=== PATIENT | female | born 1990 | race Caucasian/White ===

== ENCOUNTER 2024-12-29 12:17 | Outpatient (OUT) | payer OTHER, SELFPAY ==
--- OUTSIDE RECORDS SUMMARY | 2024-12-29 11:30 | XMS_ITS | Encounter Summary ---
Author Organization [facility] Address [address] [place] [address] Care Team Providers Care Medical Doctor Md Name Role Phone Pual Hargrove MD Primary Care Provider [phone] Paul Hargrove MD Unavailable [phone] Encounter Details DateTypeDepartmentCare Team (Latest Contact Info)Ocpnnyntjhw25/04/2025 11:30 AM ESTOffice Visit [facility] [place] [address] Family Medicine [address] [facility] [address] [place] [address] Paul Hargrove MD [address] [facility] [address] [place] [address] (Fax) Cervicalgia (Primary Dx); Encounter for wellness examination in adult; Advance directive in chart; Lumbosacral radiculopathy at S1 Social History Tobacco UseTypesPacks/DayYears UsedDateSmoking Tobacco: NeverSmokeless Tobacco: NeverAlcohol UseStandard Drinks/WeekCommentsYes1 (1 standard drink = 0.6 oz pure alcohol)1-2 drinks less than monthly in the past year, Caffeine intake: 1-2 cups per dayPHQ-2AnswerDate RecordedPatient Health Questionnaire-2 Gfzac41302/29/2024 CommentsNoSex and Gender InformationValueDate RecordedSex Assigned at BirthNot on fileLegal SchVasibi16/15/2023 6:46 PM EDTGender IdentityNot on file Sexual OrientationNot on fileOccupationIndustryJob Start DateJob End DateWorks full-time, PTANot on fileNot on fileNot on filedocumented as of this encounter Last Filed Vital Signs Vital SignReadingTime TakenCommentsBlood Rbhdoxpt363/6811/05/2024 11:34 AM EST Tyfoc543412/29/2024 11:34 AM ESTTemperature--Respiratory Rate--Oxygen Saturation 97%12/29/2024 11:34 AM ESTInhaled Oxygen Concentration--Weight--Height--Body Mass Index--documented in this encounter Functional Status * Over the past 2 weeks, how often have you been bothered by any of the following problems?QuestionAnswerDate of AssessmentAuthorLittle interest or pleasure in doing thingsNot at all12/29/2024 11:36 AM Sylvia, May, EMERALD Feeling down, depressed, or hopelessNot at all12/29/2024 11:36 AM Sylvia May [facility]ITALatient Health Questionnaire-2 Sstjb87302/29/2024 11:36 AM Sylvia Rhonda, EMERALD documented as of this encounter Plan of Treatment DateTypeDepartmentCare Team (Latest Contact Info)Xefxayvpfmf63/09/2025 9:45 AM ESTOffice Visit [facility] [place] [facility] [address] [place] [address] Masha Wild DO [address] [place] [address] NameTypePriorityAssociated DiagnosesOrder ScheduleXR cervical spine 2 or 3 views ImagingRoutine Cervicalgia Expected: 12/29/2024, Expires: 12/29/2025XR LUMBAR SPINE AP/LAT/FLEX/EXT/OBLIQUESImagingRoutine Lumbosacral radiculopathy at S1 Expected: 12/29/2024, Expires: 12/29/2025documented as of this encounter Visit Diagnoses Diagnosis Cervicalgia- Primary Encounter for wellness examination in adult Advance directive in chart Lumbosacral radiculopathy at S1 documented in this encounter Care Teams Team MemberRelationshipSpecialtyStart DateEnd Date Paul Hargrove MD [address] [address] PCP - GeneralFamily Medicine07/03/22 Paul Hargrove MD [address] [address] PCP - Medical [employer]02/25/2311documented as of this encounter
--- OUTSIDE RECORDS SUMMARY | 2024-12-29 12:25 | XMS_ITS | Clinical Summary ---
Author Organization [facility] Address [address] [place] [address] Phone Care Team Providers Care Book Trimmer Name Role Phone Paul Hargrove MD Primary Care Provider Allergies No known active allergies Medications MedicationSigDispense QuantityRefillsLast FilledStart DateEnd DateStatus dilTIAZem CD (Cardizem CD) 120 mg 24 hr capsule Indications:Paroxysmal SVT (supraventricular tachycardia)Take 1 capsule (120 mg) by mouth once daily as needed (tachycardia). 15 capsule 5Active Active Problems ProblemNoted DateDiagnosed DateNever smoked gonukts75/21/2025BMI 24.0-24.9, adult4Paroxysmal SVT (supraventricular tachycardia)02/20/2023 Immunizations ImmunizationAdministration DatesNext PccSHI0409/17/1997DTaP, Aiuhvbijiyz24/27/1995 Flu vaccine (IIV4), preservative free *Check age/dose*11/20/2021HPV, Unspecified 11/16/2010Hepatitis B vaccine, 19 yrs and under (RECOMBIVAX, ENGERIX)12/29/1999 HiB, jppjkuwdhru88/27/1995MMR vaccine, subcutaneous (MMR II)09/17/1997 Meningococcal ACWY-D (Menactra) 4-valent conjugate gqblmmp3511/16/2010Moderna SARS-CoV-2 Aiadwqorcxp25/25/2021,02/18/2020OPV03/24/1993 Family History Medical HistoryRelationNameCommentsDiabetesFatherHypertensionFatherRelationName StatusCommentsFather Social History Tobacco UseTypesPacks/DayYears UsedDateSmoking Tobacco: NeverSmokeless Tobacco: NeverAlcohol UseStandard Drinks/WeekCommentsYes0 (1 standard drink = 0.6 oz pure alcohol)socialCommentsUnknownSex and Gender InformationValueDate RecordedSex Assigned at BirthNot on fileLegal WsbAhpoeg42/26/2022 2:07 AM EST Gender IdentityNot on fileSexual OrientationNot on file Last Filed Vital Signs Vital SignReadingTime TakenCommentsBlood Eecoenkq865/8001 1:14 PM EST Qgeqs364003/17/2024 1:14 PM ESTTemperature--Respiratory Rate--Oxygen Saturation-- Inhaled Oxygen Concentration--Rhouxn66.3 kg (146 lb 3.2 oz)03/17/2024 1:14 PM YUIMfhqdv569.6 cm (5' 6 )03/17/2024 1:14 PM ESTBody Mass Index23.6003/17/2024 1:14 PM EST Plan of Treatment DateTypeDepartmentCare Team (Latest Contact Info)Ffgqffkjfjp84/27/2026 1:00 PM ESTOffice Visit [facility] [address] [address] Keena Coreas MD 703 [facility], [address] [place] [address] Health MaintenanceDue DateLast DoneCommentsHIV Qsztlckmo47/16/1993DTaP/Tdap/Td Vaccines (6 - Tdap), 03/23/1994, 06/05/1993, Additional history existsDiabetes Wxbyqthaf51/16/2011Hepatitis C Qyaespjmb83/16/2011HPV Vaccines (3 - 3-dose series), 09/12/2010, 12/12/2009Cervical Cancer Oroscycux96/16/2014HPV/Clfuzm4909/09/2013Pap Smear2013Influenza Vaccine (#1), 11/19/2022, 11/20/2021, Additional history existsCOVID-19 Vaccine ( season)501/, 02/18/2020 Yearly Adult Rdrybrrf79/13/405434/01/2024, 12/24/2023, 12/18/2022, Additional history existsLipid Panel805/Zoster Vaccines (1 of 2)2042 HIB AuvlhvrcRqbzpxspr06/27/1995, 06/05/1993, 03/24/1993, Additional history existsIPV FoqnyzvfHprhyazse15/24/1998, 06/05/1993, 03/24/1993, Additional history existsMMR WsbhmbnuHhvdfxwho41/24/1998, 03/23/1994Hepatitis B Vaccines Bkgfxiury05/03/2000, 07/14/1999, 06/14/1999Meningococcal VaccineCompleted 11/16/2010Hepatitis A VaccinesAged OutNo longer eligible based on patient's age to complete this topicPneumococcal Vaccine: Pediatrics and At-Risk Adult PatientsAged OutNo longer eligible based on patient's age to complete this topic Rotavirus VaccinesAged OutNo longer eligible based on patient's age to complete this topic Insurance * Guarantor: Hortencia oWng TypeRelation to PatientDate of BirthPhone Billing AddressPersonal/ThgvlhVthl02/16/[address] [place] [address] Care Teams Team MemberRelationshipSpecialtyStart DateEnd Date Paul Hargrove MD [address] [place] [address] PCP - General02/25/99
--- OUTSIDE RECORDS SUMMARY | 2024-12-29 12:25 | XMS_ITS | Encounter Summary ---
Author Organization [facility] Address [address] [facility] [place] [address] Care Team Providers Care Line Staker Name Role Phone Paul Hargrove MD Primary Care Provider [phone] Paul Hargrove MD Unavailable [phone] Encounter Details DateTypeDepartmentCare Team (Latest Contact Info)Zubyvsbanqq21/28/2025Orders Only [facility] [address] Medicine [address] [facility] 100 [place] [address] Paul Hargrove MD [address] [facility] [address] [place] [address] Social History Tobacco UseTypesPacks/DayYears UsedDateSmoking Tobacco: NeverSmokeless Tobacco: NeverAlcohol UseStandard Drinks/WeekCommentsYes1 (1 standard drink = 0.6 oz pure alcohol)1-2 drinks less than monthly in the past year, Caffeine intake: 1-2 cups per dayPHQ-2AnswerDate RecordedPatient Health Questionnaire-2 Tjeyi487 CommentsNoSex and Gender InformationValueDate RecordedSex Assigned at BirthNot on fileLegal CysMwfmkd56/15/2023 6:46 PM EDTGender IdentityNot on file Sexual OrientationNot on fileOccupationIndustryJob Start DateJob End DateWorks full-time, PTANot on fileNot on fileNot on filedocumented as of this encounter Plan of Treatment DateTypeDepartmentCare Team (Latest Contact Info)Eelqwaqpacw54/09/2025 9:45 AM ESTOffice Visit [facility] [address] [facility] [address] [place] [address] Masha Wild, DO [address] [place] [address] documented as of this encounter Procedures Procedure NamePriorityDate/TimeAssociated DiagnosisCommentsCBC (INCLUDES DIFF/PLT)Mmxvxll0209/10/2024 11:59 AM EDTLIPID ABQCELjarcnk45/17/2025 11:59 AM EDT COMPREHENSIVE METABOLIC PZBNRBaymndn61/17/2025 11:59 AM EDTdocumented in this encounter Results * CBC and differential (09/10/2024 11:59 AM EDT)Specimen (Source)Anatomical Location / LateralityCollection Method / VolumeCollection TimeReceived Time BloodVenous blood specimen / Unknown Narrative Authorizing ProviderResult TypeResult StatusPaul DUNCAN BLOOD ORDERABLESFinal Result * Comprehensive metabolic panel (09/10/2024 11:59 AM EDT)Specimen (Source) Anatomical Location / LateralityCollection Method / VolumeCollection Time Received TimeBloodVenous blood specimen / Unknown Narrative Authorizing ProviderResult TypeResult StatusPaul DUNCAN BLOOD ORDERABLESFinal Result * Lipid panel (09/10/2024 11:59 AM EDT)Specimen (Source)Anatomical Location / LateralityCollection Method / VolumeCollection TimeReceived TimeBloodVenous blood specimen / Unknown Narrative Authorizing ProviderResult TypeResult StatusPaul DUNCAN BLOOD ORDERABLESFinal Result documented in this encounter Visit Diagnoses Not on filedocumented in this encounter Care Teams Team MemberRelationshipSpecialtyStart DateEnd Date Paul Hargrove MD [address] [place] [address] (Fax) PCP - GeneralFamily Medicine07/03/22 Paul Hargrove MD [address] [place] [address] (Fax) PCP - Medical [place] [employer]/02/2311documented as of this encounter
--- OUTSIDE RECORDS SUMMARY | 2024-12-29 12:25 | XMS_ITS | Encounter Summary ---
Author Organization [facility] Address [address] [place] [address] Care Team Providers Care Account Services Specialist Name Role Phone Paul Hargrove MD Primary Care Provider [phone] Paul Hargrove MD Unavailable [phone] Encounter Details DateTypeDepartmentCare Team (Latest Contact Info)Ekjbsdipcfj87/04/2025Travel Social History Tobacco UseTypesPacks/DayYears UsedDateSmoking Tobacco: NeverSmokeless Tobacco: NeverAlcohol UseStandard Drinks/WeekCommentsYes1 (1 standard drink = 0.6 oz pure alcohol)1-2 drinks less than monthly in the past year, Caffeine intake: 1-2 cups per dayPHQ-2AnswerDate RecordedPatient Health Questionnaire-2 Bkavp21902/29/2024 CommentsNoSex and Gender InformationValueDate RecordedSex Assigned at BirthNot on fileLegal JbrSsgvks83/15/2023 6:46 PM EDTGender IdentityNot on file Sexual OrientationNot on fileOccupationIndustryJob Start DateJob End DateWorks full-time, PTANot on fileNot on fileNot on filedocumented as of this encounter Functional Status * Over the past 2 weeks, how often have you been bothered by any of the following problems?QuestionAnswerDate of AssessmentAuthorLittle interest or pleasure in doing thingsNot at all12/29/2024 11:36 AM Rhonda Ward MA Feeling down, depressed, or hopelessNot at all12/29/2024 11:36 AM Rhonda Ward, MAPatient Health Questionnaire-2 Qrrnw67102/29/2024 11:36 AM Rhonda Ward MA documented as of this encounter Plan of Treatment DateTypeDepartmentCare Team (Latest Contact Info)Qpzxfogqjlo74/09/2025 9:45 AM ESTOffice Visit [facility] [place] [facility] [address] [place] [phone] Masha Wild DO [address] [place] [address] documented as of this encounter Visit Diagnoses Not on filedocumented in this encounter Care Teams Team MemberRelationshipSpecialtyStart DateEnd Date Paul Hargrove MD [address] [place] [address] PCP - GeneralFamily Medicine07/03/22 Paul Hargrove MD [address] [place] [address] PCP - Medical [place] [employer]02/25/2311documented as of this encounter
--- OUTSIDE RECORDS SUMMARY | 2024-12-29 12:25 | XMS_ITS | Clinical Summary ---
Author Organization [facility] Address [address] [place] [address] Care Team Providers Care Medical Office Manager Name Role Phone Paul Hargrove MD Primary Care Provider [phone] Paul Hargrove MD Unavailable [phone] Allergies No known active allergies Medications MedicationSigDispense QuantityRefillsLast FilledStart DateEnd DateStatus Levonorgestrel (MIRENA, 52 MG, IU) MirenaActive cetirizine (ZyrTEC) 10 MG tablet Take 10 mg by mouth Daily as needed for allergies.Active PreviDent 5000 Sensitive 1.1-5 % dental gel Apply to teeth Daily5Active Active Problems ProblemNoted DateDiagnosed DateBilateral occipital gzudlchbp15/23/2023hronic fatigue yxmvqfwi78/23/2023AD (generalized anxiety disorder)12/17/2022Iron deficiency anemia secondary to inadequate dietary iron keqchp7612/17/2022 Pphoggbokzao65/23/2023 Resolved Problems ProblemNoted DateDiagnosed DateResolved DateAbnormal immunological findings in specimens from other organs, systems and itmkuii55ecurrent major depressive disorder, in partial vzkvgkvol67/ Encounters DateTypeDepartmentCare KncdDfpyjpvsdoq63/04/2025 11:30 AM ESTOffice Visit [facility] [address] Paul Hargrove MD Cervicalgia (Primary Dx); Encounter for wellness examination in adult; Advance directive in chart; Lumbosacral radiculopathy at S115Bamboo flowsheet [facility] [place] [address] [place] [address] [address] [facility] 100 [place] [address] Paul Hargrove MD 12/29/20249492Rduruc81/28/2025Orders Only [facility] [place] 100 [facility] [address] [facility] [place] [address] Paul Hargrove MD 11/24/2024Telephone [facility] [address] [place] [address] [place] [address] Kj Rhonda, MA Care Coordinationfrom Last 3 Months Immunizations ImmunizationAdministration DatesNext JudZCT0706/05/1993,03/24/1993,01/06/1993DTaP, Eizilxsepez05/24/1998,03/23/1994HPV, Gmtoyntsywe58/22/2011,09/12/2010,12/12/2009 Hep B, Adolescent or Tyramarqy73/03/2000,07/14/1999,06/14/1999HiB, unspecified 03/23/1994,06/05/1993,03/24/1993,01/06/1993Influenza, Injectable, MDCK, preservative free11/27/2017Influenza, injectable, xkzvhhdkeljo96/02/2017 Influenza, injectable, quadrivalent, preservative free11/19/2022,11/20/2021 Influenza, seasonal, mnoydazztc48/01/2020Influenza, seasonal, injectable, preservative free12/02/2024,12/11/2023MMR09/17/1997,03/23/1994Meningococcal NCN3Y5211/16/2010OPV09/17/1997,06/05/1993,03/24/1993,01/06/1993 Family History Medical HistoryRelationNameCommentsNo Known ProblemsBrotherDiabetesFather HyperlipidemiaFatherObesityFatherBreast cancerMotherHeart diseasePaternal GrandfatherStrokePaternal GrandfatherStrokePaternal GrandmotherNo Known Problems SisterRelationNameStatusCommentsBrother1 brotherFatherDeceasedMotherAlive Paternal GrandfatherPaternal GrandmotherDeceasedbreast cancerSister1 sister Social History Tobacco UseTypesPacks/DayYears UsedDateSmoking Tobacco: NeverSmokeless Tobacco: Never Tobacco Cessation:Counseling Given: No Alcohol UseStandard Drinks/WeekCommentsYes1 (1 standard drink = 0.6 oz pure alcohol)1-2 drinks less than monthly in the past year, Caffeine intake: 1-2 cups per dayPHQ-2AnswerDate RecordedPatient Health Questionnaire-2 Plxif73502/29/2024 CommentsNoSex and Gender InformationValueDate RecordedSex Assigned at BirthNot on fileLegal IovUuened60/15/2023 6:46 PM EDTGender IdentityNot on file Sexual OrientationNot on fileOccupationIndustryJob Start DateJob End DateWorks full-time, PTANot on fileNot on fileNot on file Last Filed Vital Signs Vital SignReadingTime TakenCommentsBlood Paygnmpw239/6812/29/2024 11:34 AM EST Ucatc786712/29/2024 11:34 AM ESTTemperature--Respiratory Rate--Oxygen Saturation 97%12/29/2024 11:34 AM ESTInhaled Oxygen Concentration--Onlcmh07.3 kg (144 lb) 01/07/2024 11:08 AM TCIEeftbh434.9 cm (5' 6.5 )12/24/2023 9:37 AM EDTBody Mass Index22.8912/24/2023 9:37 AM EDT Plan of Treatment DateTypeDepartmentCare Team (Latest Contact Info)Idzyrzciytr30/09/2025 9:45 AM ESTOffice Visit [facility] [address] [place] [address] Masha Wild DO [address] [place] [address] Health MaintenanceDue DateLast DoneCommentsPap Smear2013Cervical Cancer Jebrqvjea12/12/2029HPV/Pubkyo65OVID-19 VaccineDiscontinued 03/21/2020, 02/18/2020Influenza JxusewrNdmvknczx16/08/2025, 12/11/2023, 11/19/2022, Additional history existsPneumococcal Vaccine: Pediatrics (0 to 5 Years) and At-Risk Patients (6 to 64 Years)Aged OutNo longer eligible based on patient's age to complete this topic Insurance Advance Directives TypeDate RecordedPatient RepresentativeExplanationAdvance Directives and Living Will Living WillAdvance Directives and Living Will12/07/2020 2019-07-23 Power Of Type Proof Reproducer Care Teams Team MemberRelationshipSpecialtyStart DateEnd Date Paul Hargrove MD [address] [place] [address] PCP - GeneralFamily Medicine07/03/22 Paul Hargrove MD [address] [place] [address] PCP - Medical [place] [employer]02/25/2311
--- OUTSIDE RECORDS SUMMARY | 2024-12-29 12:25 | XMS_ITS | Encounter Summary ---
Author Organization [facility] Address [address] [place] [address] Care Team Providers Care Community Health Advisor Name Role Phone Paul Hargrove MD Primary Care Provider [phone] Paul Hargrove MD Unavailable [phone] Encounter Details DateTypeDepartmentCare Team (Latest Contact Info)Elumxaxoexj13/04/2025amboo flowsheet [facility] [address] Medicine [address] [facility] 100 [place] [address] Paul Hargrove MD 112 [facility] 100 [place] [address] Social History Tobacco UseTypesPacks/DayYears UsedDateSmoking Tobacco: NeverSmokeless Tobacco: NeverAlcohol UseStandard Drinks/WeekCommentsYes1 (1 standard drink = 0.6 oz pure alcohol)1-2 drinks less than monthly in the past year, Caffeine intake: 1-2 cups per dayPHQ-2AnswerDate RecordedPatient Health Questionnaire-2 Qqvec95002/29/2024 CommentsNoSex and Gender InformationValueDate RecordedSex Assigned at BirthNot on fileLegal IhsQhmuur78/15/2023 6:46 PM EDTGender IdentityNot on file Sexual OrientationNot on fileOccupationIndustryJob Start DateJob End DateWorks full-time, PTANot on fileNot on fileNot on filedocumented as of this encounter Plan of Treatment DateTypeDepartmentCare Team (Latest Contact Info)Bbcumhkmljr54/09/2025 9:45 AM ESTOffice Visit [facility] [place] [facility] [address] [facility] 210 [place] [address] Masha Wild, DO [address] [place] [address] documented as of this encounter Visit Diagnoses Not on filedocumented in this encounter Care Teams Team MemberRelationshipSpecialtyStart DateEnd Date Paul Hargrove MD [address] [place] [address] PCP - GeneralFamily Medicine07/03/22 Paul Hargrove MD [address] [place] [address] PCP - Medical [place] [employer]02/25/2311documented as of this encounter
--- NOTE | 2024-12-29 12:26 | XR_ITS ---
The [address] [address] Patient Name: JEFRY BAUM MRN: [id number] date: 1990 Sex: F Assigned Patient Location: [facility] Current Patient Location: [facility] Accession/Order Number: [id number] Exam Date: 12/29/2024 12:38 Report Date: 12/29/2024 15:24 At the request of: GALINDO DANGELO Procedure: XR lumbar spine 6V w bending XR lumbar spine 6V w bending 12/29/2024 12:49 PM SIGNS AND SYMPTOMS: ^M54.17 Lumbar radiculopathy, chronic low back pain radiating to lower extremities PROTOCOLS: Frontal, lateral, oblique, and flexion-extension views of the lumbar spine COMPARISON: None FINDINGS: The alignment, development and bony structures are normal. There is no fracture or destructive lesion. No pathologic movement on flexion or extension. The disk spaces are well-preserved. The sacrum and sacroiliac joints are normal. XR/XR lumbar spine 6V w bending IMPRESSION: Negative lumbosacral spine. Impression dictated by: Kayode Ibarra M.D. 12/29/2024 3:24 PM Dictation Location: [employer]azThe [employer] easily beat[employer]Del[employer] Electronically authenticated by: [id number] Y Date: 12/29/2024 15:24
--- NOTE | 2024-12-29 12:27 | XR_ITS ---
[address] [address] Patient Name: JEFRY BAUM MRN: [id number] date: 1990 Sex: F Assigned Patient Location: [facility] Current Patient Location: [facility] Accession/Order Number: [id number] Exam Date: 12/29/2024 12:38 Report Date: 12/29/2024 15:23 At the request of: GALINDO DANGELO Procedure: XR cervical spine 2-3V XR cervical spine 2-3V 12/29/2024 12:49 PM SIGNS AND SYMPTOMS: ^M54.2 cervicalgia PROTOCOLS: 3 views of the cervical spine COMPARISON: None FINDINGS: The bones are in anatomic alignment. There is preservation of the vertebral body heights and intervertebral disc spaces. There is no fracture or destructive lesion. XR/XR cervical spine 2-3V IMPRESSION: Negative cervical spine. Impression dictated by: Kayode Ibarra M.D. 12/29/2024 3:23 PM Dictation Location: [employer] Electronically authenticated by: [id number] Y Date: 12/29/2024 15:23
== END 2024-12-29 12:18 | disposition home or self-care (01) ==
LOC: RAD 12:22
PROVIDERS: PCP Family Medicine; Visit Provider Family Medicine
DX: M54.2 Cervicalgia (principal); M54.17 Radiculopathy, lumbosacral region
CPT/HCPCS: 72040; 72114